=== PATIENT | male | born 1995 | race African-American/Black ===

== ENCOUNTER 2020-01-31 23:47 | Emergency (ER) | payer MEDICAID, OTHER ==
[~2020-01-31] VITALS: Ht 170.2 cm; Wt 77.8 kg
[2020-02-01] MEDS ORDERED: FAMOTIDINE 20MG TABLET PO ONE (01:00)
[2020-02-01] MEDS ORDERED: ONDANSETRON 4MG ODT PO ONE (01:00)
[2020-02-01] MEDS ORDERED: METHYLPREDNISOLONE SOD SUCC 125 MG/2 ML VIAL IV ONE (01:00)
[2020-02-01] MEDS ORDERED: DIPHENHYDRAMINE 25MG CAPSULE PO ONE (01:00)
[2020-02-01 01:17] LABS: BASOPHILS % 0.8 % (0.0-2.0); EOSINOPHILS % 11.4 % (0.0-5.0); HEMATOCRIT. 39.2 % (42.0-52.0); HEMOGLOBIN. 13.7 g/dL (14.0-18.0); LYMPHOCYTES % 57.8 % (20.0-50.0); MEAN CORPUSCULAR HEMOGLOBIN 32.3 pg (28.0-32.0); MEAN CORPUSCULAR VOLUME 92.5 fL (80.0-94.0); MEAN PLATELET VOLUME 8.3 fl (7.4-10.4); MONOCYTES % 6.7 % (2.0-8.0); NEUTROPHILS % 23.3 % (40.0-76.0); PLATELET 250 x1000/uL (130-400); RED BLOOD CELL COUNT 4.24 mill/uL (4.7-6.1); RED CELL DISTRIBUTION WIDTH 12.7 % (11.6-14.6)
[2020-02-01 01:25] LABS: CHLORIDE 108 mEq/L (98-107)
[2020-02-01 04:56] VITALS: BP 128/81
== END 2020-02-01 04:57 | disposition home or self-care (01) ==
LOC: ER 23:47
DX: T78.40XA Allergy, unspecified, initial encounter (principal); J45.909 Unspecified asthma, uncomplicated; X58.XXXA Exposure to other specified factors, initial encounter; Z91.010 Allergy to peanuts
CPT/HCPCS: 36415; 80053; 85025; 96374; 99284; J2930; Q0162; Q0163

== ENCOUNTER 2024-10-26 21:02 | Emergency (ER) | payer MEDICAID, OTHER ==
[~2024-10-26] VITALS: Ht 170.2 cm; Wt 82.0 kg
[2024-10-26 21:40] VITALS: O2SAT 98
[2024-10-26 22:49] VITALS: BP 139/85; PULSE 94; RESP 16; TEMP 36.8; O2SAT 100
[2024-10-27] MEDS ORDERED: BACITRACIN ZINC OINT UDPKT TOP ONE (00:15)
[2024-10-27] MEDS: TETANUS, DIPHTHERIA, PERTUSSIS VAC/PF 0.5ML (>10YR OLD) IM ONE (00:40)
[2024-10-27] MEDS: LIDOCAINE HCL/PF 1% 10 MG/ML 5ML VIAL INFIL ONE (00:46)
[2024-10-27] MEDS ORDERED: NAPR-1176 MT (01:55)
== END 2024-10-27 02:11 | disposition home or self-care (01) ==
LOC: ER 21:02
DX: L60.0 Ingrowing nail (principal); J45.909 Unspecified asthma, uncomplicated
CPT/HCPCS: 99284; 11730; 90715; 90471; J2003

== ENCOUNTER 2025-02-16 23:29 | Emergency (ER) | payer MEDICAID ==
[~2025-02-16] VITALS: Ht 172.7 cm; Wt 73.0 kg
[~2025-02-16 23:29] MED LIST: NAPR-1176 MT
[2025-02-16 23:38] VITALS: O2SAT 99
[2025-02-17 00:14] LABS: BASOPHILS % 1.0 % (0.0-2.0); EOSINOPHILS % 3.5 % (0.0-5.0); HEMATOCRIT. 39.1 % (42.0-52.0); HEMOGLOBIN. 13.0 g/dL (14.0-18.0); LYMPHOCYTES % 37.7 % (20.0-50.0); MEAN PLATELET VOLUME 8.8 fl (7.4-10.4); MONOCYTES % 5.4 % (2.0-8.0); NEUTROPHILS % 52.4 % (40.0-76.0); PLATELET 290 x1000/uL (130-400); RED BLOOD CELL COUNT 4.23 mill/uL (4.7-6.1); RED CELL DISTRIBUTION WIDTH 12.9 % (11.6-14.6)
[2025-02-17 00:28] LABS: CREATININE 1.5 mg/dL (0.6-1.3); ETHANOL BLOOD 77 mg/dL (<10); UREA NITROGEN BLOOD 11 mg/dL (9-23)
[2025-02-17 00:30] LABS: ASPARTATE AMINOTRANSFERASE 23 IU/L (<34); BILIRUBIN DIRECT 0.2 mg/dL (<=3.0); BILIRUBIN TOTAL 0.6 mg/dL (0.1-1.0); PROTEIN TOTAL 6.9 g/dL (6.0-8.3)
[2025-02-17] MEDS: LORAZEPAM 2MG/ML UD SYRINGE IV NR (00:37)
[2025-02-17 10:22] VITALS: BP 110/66; PULSE 78; RESP 12; TEMP 36.8; O2SAT 99
[2025-02-17] MEDS ORDERED: ACETAMINOPHEN 325MG TABLET PO PRN (12:45)
[2025-02-17] MEDS ORDERED: ONDANSETRON HCL 4MG/2ML INJ IV PRN (12:45)
[2025-02-17] MEDS ORDERED: LORAZEPAM 2MG/ML UD SYRINGE IV PRN (12:45)
[2025-02-17] MEDS ORDERED: ZOLPIDEM TARTRATE 5MG TABLET PO PRN (12:45)
[2025-02-17] MEDS ORDERED: HYDROCODONE/ACETAMINOPHEN 5/325MG TABLET PO PRN (12:45)
[2025-02-17] MEDS ORDERED: CLONIDINE 0.1MG TABLET PO PRN (12:45)
[2025-02-17] MEDS ORDERED: SODIUM CHLORIDE 0.9% 1,000 ML IV SCH (12:45)
[2025-02-17] MEDS ORDERED: MAGNESIUM/ALUMINUM HYDROXIDE/SIMETHICONE 30ML UDC PO PRN (12:45)
[2025-02-17] MEDS ORDERED: NALOXONE HCL 0.4MG/ML VIAL IV PRN (13:00)
[2025-02-17] MEDS ORDERED: ENOXAPARIN 40MG/0.4ML SYR SUBCUT SCH (13:00)
[2025-02-17] MEDS ORDERED: MVI, ADULT NO.1 10 ML, FOLIC ACID 1 MG, THIAMINE HCL 100 MG in SODIUM CHLORIDE 0.9% 1,0... IV SCH ×2 (13:30)
[2025-02-18] MEDS ORDERED: PANTOPRAZOLE SODIUM 40 MG/VIAL IV SCH (09:00)
== END 2025-02-17 10:36 | disposition home or self-care (01) ==
LOC: ER 23:36 → EDBEDREQ 02-17 09:58 → EDBEDREQTM 02-17 09:58 → ER 02-17 10:36
DX: T40.991A Poisoning by other psychodysleptics [hallucinogens], accidental (unintentional), initial encounter (principal); J45.909 Unspecified asthma, uncomplicated; N17.9 Acute kidney failure, unspecified; Z91.010 Allergy to peanuts; Y92.9 Unspecified place or not applicable
CPT/HCPCS: 80076; 80048; 80307; 80329; 80320; 85025; 36415 ×2; 99291; 82550; 96374; J2060; J3411; J3490; J7030; G0480